=== PATIENT | female | born 1935 | race Caucasian/White ===

== ENCOUNTER 2018-11-04 21:21 | Inpatient (IN) | payer OTHER ==
[~2018-11-04] VITALS: Ht 157.5 cm; Wt 56.2 kg
[2018-11-04 21:22] VITALS: BP 191/73
[2018-11-04 21:40] LABS: URINE BILIRUBIN NEGATIVE (Negative); URINE BLOOD TRACE (Negative); URINE CLARITY CLEAR; URINE COLOR YELLOW; URINE GLUCOSE-RANDOM* NEGATIVE (Negative); URINE KETONES NEGATIVE (Negative); URINE NITRITE-REFLEX NEGATIVE (Negative); URINE PROTEIN (DIPSTICK) NEGATIVE (Negative); URINE SPECIFIC GRAVITY <= 1.005 (1.005-1.035); URINE UROBILINOGEN 0.2 E.U./dl (0.2-1.0)
[2018-11-04 21:41] LABS: URINE LEUKOCYTES-REFLEX 1+ (Negative)
[2018-11-04 21:56] LABS: BACTERIA-REFLEX 1-9 Few /HPF (None Seen); CASTS None Seen /LPF (None Seen); CRYSTALS None Seen /LPF (None Seen); MUCUS 0-3 Light strn/LPF (None Seen); SQUAMOUS 0-3 Few /LPF (0-3); URINE RBC 0-2 Rare /HPF (0-2); URINE WBC-REFLEX 6-15 Few /HPF (0-5); WBC CLUMPS Rare (None Seen)
[2018-11-04 21:56] LABS: ABSOLUTE NEUTROPHILS 4.2 thou/uL (1.4-8.2); BASOPHILS 0.4 % (0.0-2.0); EOSINOPHILS 1.7 % (0.0-3.0); HEMATOCRIT 31.8 % (37.0-47.0); LYMPHOCYTES 19.5 % (24.0-44.0); MCH 29.5 pg (26.0-34.0); MCHC 34.4 g/dL (28.0-37.0); MCV 85.5 fL (80.0-100.0); MONOCYTES 8.5 % (1.0-8.0); PLATELET COUNT 221 thou/uL (150-400); POLYS 69.9 % (36.0-66.0); RBC 3.72 mil/uL (4.20-5.00); RDW 13.8 % (10.5-14.5)
[2018-11-04 22:05] LABS: CALCIUM 9.7 mg/dL (8.5-10.1); CREATININE 0.5 mg/dL (0.6-1.0); POTASSIUM 3.8 mmol/L (3.5-5.1)
[2018-11-04 22:10] LABS: ALBUMIN 3.7 g/dL (3.4-5.0); TOTAL BILIRUBIN 0.9 mg/dL (<0.1-1.0); TOTAL PROTEIN 7.2 g/dL (6.4-8.2)
[2018-11-04] MEDS ORDERED: GEMFIBROZIL 60600 MG PO (22:11)
[2018-11-04] MEDS ORDERED: METFORMIN HCL500 MG PO (22:11)
[2018-11-04] MEDS ORDERED: PRAVACHOL40 MG PO (22:12)
[2018-11-04] MEDS ORDERED: LISINOPRIL10 MG PO (22:12)
[2018-11-04] MEDS ORDERED: VITAMINC500 PO (22:12)
[2018-11-04] MEDS ORDERED: CALCIUM 600 +1 EAC1 PO (22:13)
[2018-11-05] MEDS ORDERED: PIOGLITAZONE15 MG (04:22)
[2018-11-05] MEDS ORDERED: XANAX 0.25 MG0.25 MG PO (04:24)
[2018-11-05 10:53] VITALS: BP 158/58
--- NOTE | 2018-11-05 15:34 | NUR ---
ATTEMPTED TO CALL REPORT. NURSE BUSY
[2018-11-05 15:59] VITALS: BP 166/63
[2018-11-05 19:20] VITALS: BP 144/59
[2018-11-06 05:00] VITALS: BP 158/56
[2018-11-06 05:23] LABS: CALCIUM 8.6 mg/dL (8.5-10.1); CREATININE 0.5 mg/dL (0.6-1.0); MAGNESIUM 1.7 mg/dL (1.8-2.4); POTASSIUM 4.3 mmol/L (3.5-5.1)
--- NOTE | 2018-11-06 06:31 | NUR ---
PT ADMITTED TO THE UNIT IN A STABLE CONDITION.ADMISSION ASSESSMENT COMPLETED.PT C/O PAIN ON HER BACK,MANAGED WITH MED.UP WITH ASSIST X1 TO BSC.IVF AND IV ABX ORDERED.COLOSTOMY IN PLACE, MIN STOOL NOTED IN THE BAG.PT RESTING ON HER BED AT THIS TIME.FALL PRECAUTIONS IN PLACE.CALL LIGHT WITHIN REACH.
[2018-11-06 07:41] VITALS: BP 164/63
--- NOTE | 2018-11-06 09:12 | HC ---
[facility] [place] [address] CONSULTATION Name: ELISE MARTIN Florian Room #: 432-P [facility] IN [place].#: [id number] Admission: 11/05/18 Attend Phys: Heladio Bond MD Discharge: Date of : 33 Report #: [id number] THIS REPORT FOR: //name// CC: Rahel Bond DATE OF SERVICE: 11/05/2018 ATTENDING PHYSICIAN: Dr. Camacho. CONSULTING PHYSICIAN: Dr. Houser. REASON FOR CONSULTATION: Constipation. ASSESSMENT: 1. Constipation. 2. Colostomy. 3. Parastomal hernia. 4. Urinary tract infection. 5. Diabetes mellitus. 6. Hypertension. 7. History of colorectal cancer. RECOMMENDATIONS: 1. Thank you for the consultation. We will follow along. 2. We will plan on attempted conservative management. The colostomy and parastomal hernia does not appear to be obstructing. The patient is passing a lot of flatus during my history and physical in the ER. The patient reports that her pain is also much better as well. 3. If the symptoms do not resolve, tomorrow consider a Gastrografin enema through the stoma. HISTORY OF PRESENT ILLNESS: The patient is a very pleasant 83-year-old female who has a parastomal hernia and an end colostomy due to colorectal cancer procedure over 20 years ago. The patient reports that she normally does just fine with her stoma. For the last 3 days, she has stopped having a stool and has had very minimal flatus. She has not had emptied the bag when normally she empties it 3 times a day. She denies nausea or vomiting, but she does endorse abdominal pain that radiates to her back. The abdominal pain worsened in intensity, so she presented to the ER. PAST MEDICAL HISTORY: 1. Diabetes mellitus. 2. Hypertension. [facility] [address] [address] CONSULTATION Name: KACY MARTINPaula Du Room #: 432-P [facility] IN [place].#: [id number] Admission: 11/05/18 Attend Phys: Heladio Bond MD Discharge: Date of : 33 Report #: [id number] 3. History of colorectal cancer. 4. Hyperlipidemia. PAST SURGICAL HISTORY: 1. Colon resection and colostomy in 1997. 2. Benign breast lump removed. 3. Hysterectomy. 4. Foot surgery. 5. Breast reduction. 6. Cholecystectomy. 7. Appendectomy. 8. Parastomal hernia repair. 9. Small-bowel obstruction, colon resection. SOCIAL HISTORY: The patient denies use of alcohol, tobacco or recreational drugs. FAMILY HISTORY: The patient denies coagulopathy. REVIEW OF SYSTEMS: CONSTITUTIONAL: No fever. No chills. HEENT: Denies blurring of vision, double vision, headaches, hearing loss, sinus drainage or sore throat. Denies blurring of vision, double vision, headaches, hearing loss, sinus drainage or sore throat. CARDIOVASCULAR: Denies chest pain, palpitations, orthopnea or paroxysmal nocturnal dyspnea. RESPIRATORY: Denies cough, wheezing, hemoptysis, or shortness of air. GASTROINTESTINAL: Soft, distended, nontender. No guarding, no rebound, no rigidity. The patient does have a parastomal hernia with findings consistent with stool within the parastomal hernia. GENITOURINARY: Denies dysuria or hematuria or kidney stones. No urinary frequency, urgency or incontinence. Denies dysuria or hematuria or kidney stones. No urinary frequency, urgency or incontinence. MUSCULOSKELETAL: No joint pain. No muscle pain. NEUROLOGICAL: Denies tremor, stroke or seizure. Denies tremor, stroke or seizure. HEMATOLOGIC / LYMPHATICS: Denies easy bruising, easy bleeding or enlarged lymph nodes. SKIN: No rash or ulceration. ENDOCRINE: No heat or cold intolerance PSYCHIATRIC: Denies depression, anxiety, or schizophrenia. PHYSICAL EXAMINATION: GENERAL: No apparent distress, alert and oriented x3. VITAL SIGNS: Temperature 37.7, pulse 105, respiratory rate 23, blood pressure 155/52, pulse ox 92%. [facility] [address] [place] [address] CONSULTATION Name: ELISE MARTIN Room #: 432-P ADM IN .R.#: [id number] Admission: 11/05/18 Attend Phys: Heladio Bond MD Discharge: Date of : 33 Report #: [id number] HEENT: PERRLA, EOMI, MMM, NCAT NECK: Supple. No LAD CARDIOVASCULAR: Regular rhythm and rate. Hemodynamically stable. Normal capillary refill. Regular rhythm and rate. Hemodynamically stable. Normal capillary refill. PULMONARY: Nonlabored. Clear to auscultation bilaterally ABDOMEN: Soft, distended, nontender. No guarding, no rebound, no rigidity. The patient does have a parastomal hernia with findings consistent with stool within the parastomal hernia. EXTREMITIES: Calves soft, nontender, no edema. SKIN: No rashes or bruises. PSYCHIATRIC: Normal mood and affect Normal mood and affect NEUROLOGICAL: Grossly intact. CN II-XII grossly intact. MUSCULOSKELETAL: 5/5 strength in upper extremities and lower extremities bilaterally LYMPHATICS: No cervical, inguinal, or supraclavicular lymphadenopathy. LABORATORY DATA: White blood count 6, hemoglobin 11, hematocrit 31.8, platelets 221. Sodium 137, potassium 3.8, BUN 17, creatinine 0.5, glucose 113, lactic acid 1.3, total bilirubin 0.9, AST 20, ALT 22, alkaline phosphatase 68, albumin 3.7. TSH 2.9. IMAGING: CT abdomen and pelvis, final report pending. On my own interpretation, the patient does have an impressive amount of constipation and stool within the colon. No obstruction. <ELECTRONICALLY SIGNED> By: Aravind Houser MD 11/06/18 0912 [id number] Aravind Houser MD /nt
[2018-11-06 15:48] VITALS: BP 160/70
--- NOTE | 2018-11-06 19:28 | NUR ---
Assumed pt care at 7am.Pt in and out of bed to bathroom with assist x1. Assessment completed.vss.Pt has moderate soft stool via colostomy.Dr Houser here,order noted.Pt requested for metformin and actos.Metformin on hold due to ct done on admission.Pt tolerated full liq and scheduled meds.Will continue to monitor.
[2018-11-06 20:02] VITALS: BP 166/59
--- NOTE | 2018-11-07 00:53 | NUR ---
ASSESSMENT COMPLETED.PT C/O BACK PAINMANGED WITH MED.UP WITH ASSIST TO BSC.COLOSTOMY INTACT,NO STOOL NOTED SO FAR THIS SHIFT.PT CONT WITH MIRALAX AND STOOL SOFTNERS ORDERED.PT RESTING COMFORTABLY ON HER BED AT THIS TIME.CALL LIGHT WITHIN REACH.
[2018-11-07 04:23] VITALS: BP 154/55
[2018-11-07 05:47] LABS: HEMATOCRIT 28.5 % (37.0-47.0); MCH 29.8 pg (26.0-34.0); MCHC 34.9 g/dL (28.0-37.0); MCV 85.3 fL (80.0-100.0); RBC 3.34 mil/uL (4.20-5.00); RDW 13.4 % (10.5-14.5); WBC 5.3 thou/uL (4.0-11.0)
[2018-11-07 07:07] VITALS: BP 149/58
[2018-11-07] MEDS ORDERED: KEFLEX500 M1 PO (09:54)
--- NOTE | 2018-11-07 10:55 | NUR ---
PT ADMITTED RELATED TO CONSTIPATION. CM REVIEWED CHART AND SPOKE WITH CARE TEAM. CM MET WITH PT AT BEDSIDE THIS DAY. PT IS A&O X4. CM ROLE INTRODCUED. PT INDICATED SHE LIVES ALONE IN A HOUSE WITH HER CAT WITH 2 STEPS TO ENTER AND NONE INSIDE. PT INDICATED SHE HAS A 4WW FOR USE AT HOME. PT INIDCATED HE DTR LIVES NEXT DOOR AND ASSISTED HER SHE NEEDS IT. PT INDICATED SHE HAD [facility] IN THE PAST. PT INDICATED SHE PLANS TO RETURN HOME ONCE MEDICALLY STABLE. CM TO FOLLOW INIDCATED WITH DC PLANNING.
[2018-11-07 16:03] VITALS: BP 132/64
--- NOTE | 2018-11-07 17:02 | NUR ---
ASSUMED CARE AT 0700, SHIFT ASSESSMENT DONE, MEDS GIVEN, TOLERING ORAL DIET FINE. COLOSTOMY PRODUCING GOOD OUTPOUT. DISCHARGE ORDER RECEIVED, SCRIPTS AND PAPER WORK GIVEN.
[2018-11-07 17:16] VITALS: BP 132/64
== END 2018-11-07 17:35 | disposition home or self-care (01) | DRG 392 ==
LOC: ER 21:21 → 4E 11-05 01:23 → EROBS 11-05 01:23 → 4E 11-05 16:40 → ENTRNSPT 11-07 17:29 → 4E 11-07 17:35
PROVIDERS: Hospitalist; Physician Assistant; ADMIT Internal Medicine
DX: K59.00 Constipation, unspecified (principal); K43.3 Parastomal hernia with obstruction, without gangrene; N39.0 Urinary tract infection, site not specified; I10 Essential (primary) hypertension; Z88.6 Allergy status to analgesic agent; Z88.1 Allergy status to other antibiotic agents; Z88.2 Allergy status to sulfonamides; Z60.2 Problems related to living alone; E83.42 Hypomagnesemia; F41.9 Anxiety disorder, unspecified; M81.0 Age-related osteoporosis without current pathological fracture; Z85.038 Personal history of other malignant neoplasm of large intestine; Z85.048 Personal history of other malignant neoplasm of rectum, rectosigmoid junction, and anus; Z90.49 Acquired absence of other specified parts of digestive tract; Z90.710 Acquired absence of both cervix and uterus; Z79.899 Other long term (current) drug therapy; Z93.3 Colostomy status
CPT/HCPCS: 10084